=== PATIENT | female | born 1965 | race Caucasian/White ===

== ENCOUNTER 2021-09-23 08:06 | Day surgery (SDC) | payer OTHER ==
[~2021-09-23] VITALS: Ht 168 cm; Wt 99.0 kg
[~2021-09-23 08:06] MED LIST: ATARAX25 MG PO; BUSPIRONE HCL15 MG PO; CELEBREX **OUT100 MG PO; CHANTIX1 EACH PO; COMPAZINE10 MG PO; CYMBALTA60 MG PO; ETODOLAC400 MG PO; HCTZ25 MG PO; MAG-OXIDE 400M400 MG PO; MS CONTIN15 MG PO; OMEPRAZOLE40 MG PO; OXYCONTIN 10MG10 MG PO; PERCOCET 5-3251 EACH PO; PHENERGAN25 M1 PO; PROZAC20 MG PO; TIZANIDINE HCL2 M1 PO; VENLAFAXINE HCL75 M1 PO; VIBRAMYCIN100 MG PO; clotrimazole PO
--- NOTE | 2021-09-23 15:23 | NUR ---
PT. REQUESTED OUTPT. THERAPY AT [facility]. FIRST APPT. IS 09/25/21 @ 11:00 [facility] A [facility]ALKER UPON DISCHARGE. PT. SIGNED CHOICE FORM AND COPY GIVEN.
[2021-09-24 07:24] LABS: BASOPHIL 0.1 % (0-2); EOSINOPHIL 0 % (0-5); HCT 29.5 % (37.0-47.0); LYMPHOCYTE 12.7 % (15-48); MCH 38.8 pg (25.0-31.0); MCHC 33.9 g/dL (32.0-36.0); MCV 114.3 fL (78.0-100.0); MONOCYTE 8.3 % (0-12); MPV 9.4 fL (6.0-9.5); NEUTROPHIL 78.7 % (41-80); NRBC 0; PLT 168 K/uL (150-400); RBC 2.58 M/uL (4.20-5.40); RDW 11.9 % (11.5-14.0)
[2021-09-24 07:45] LABS: BUN/CREAT RATIO (CALC) 25.4 RATIO; CREATININE 0.71 mg/dL (0.51-0.95); POTASSIUM 3.9 mmol/L (3.5-5.1)
[2021-09-24] MEDS ORDERED: XARELTO10 MG PO (09:03)
[2021-09-24] MEDS ORDERED: FEOSOL325 MG PO (09:03)
[2021-09-24] MEDS ORDERED: OXYCODONE-ACET1 EAC1 PO (09:03)
== END 2021-09-24 13:00 | disposition home or self-care (01) ==
LOC: FAS 08:06 → FOFB 12:21 → FAS 09-24 13:00
PROVIDERS: Legal Medicine
DX: M17.11 Unilateral primary osteoarthritis, right knee (principal); M21.161 Varus deformity, not elsewhere classified, right knee; M21.061 Valgus deformity, not elsewhere classified, right knee; G89.18 Other acute postprocedural pain; F17.200 Nicotine dependence, unspecified, uncomplicated; K21.9 Gastro-esophageal reflux disease without esophagitis; F41.9 Anxiety disorder, unspecified; F32.A Depression, unspecified; C50.919 Malignant neoplasm of unspecified site of unspecified female breast; C22.8 Malignant neoplasm of liver, primary, unspecified as to type; D63.0 Anemia in neoplastic disease; G89.4 Chronic pain syndrome
CPT/HCPCS: 36415; 73560; 80048; 85025; 86850; 86900; 86901; 94010; 97110; 97162; 97166; 97530-GP; 97535; C1713; C1776; J0171; J0697; J1100; J1170; J1885; J2250; J2270; J2405; J2795; J3010; J7120